=== PATIENT | male | born 1990 | race Caucasian/White ===

== ENCOUNTER 2022-03-07 17:06 | Emergency (ER) | payer OTHER, SELFPAY ==
[2022-03-07 17:30] VITALS: BP 138/90; PULSE 78; RESP 16; TEMP 36.7; O2SAT 100
--- NOTE | 2022-03-07 17:43 | ED.SKABFB ---
HPI - Skin/Abscess/Foreign Bdy General Chief complaint: Skin/Abscess/Foreign Body Stated complaint: abscess Time Seen by Provider: 03/07/22 17:36 History of Present Illness HPI narrative: Patient is a 32-year-old male with with a history of recurrent perirectal abscesses here for evaluation of pain and swelling around his rectum. Patient states he noted the symptoms 2 days ago and have been increasing in severity ever since. Notes similar presentation with his previous perirectal abscesses. He states these abscesses have been attributed to a complication of traveler's diarrhea, and he has required incision and drainage for management in the past. He has an appointment with his surgeon next week for drainage, but states the pain was too severe to wait. Unreleived after Ibuprofen. Denies fevers, chills, abdominal pain, further systemic symptoms. Related Data Allergies Allergy/AdvReac Type Severity Reaction Status Date / Time No Known Allergies Allergy Mild Verified 03/07/22 11:07 Review of Systems Review of Systems: Gen.: Denies fevers or chills Eyes: Denies eye pain or visual change ENT: Denies congestion Respiratory: Denies shortness of breath or cough CV: Denies chest pain or palpitations GI: Denies abdominal pain nausea, emesis or diarrhea denies burning, urgency, frequency or hematuria Musculoskeletal: Denies back pain or muscle pain Neuro: Denies numbness, tingling, weakness or focal weakness Skin: Reports lesion as per HPI Except as documented, all other systems reviewed and negative PMFSH Past Medical History Medical History No pertinent past medical history Surgical History Surgical History History of incision and drainage rectal abscess Social History Social History Smoking status: Never smoker Alcohol intake: current Drinks per week: 2 Substance use: never Substance use type: does not use Additional living arrangements comments: 1 roommate 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 Head normocephalic and atraumatic. EYES: PERRLA/EOMI, conjunctivae clear NOSE: No nasal drainage EARS: External ear normal in appearance THROAT: Oropharynx is clear. Mucous membranes are moist. NECK: Supple. No adenopathy, no masses. RESPIRATORY: Airway patent, respirations nonlabored. Clear to auscultation bilaterally, no rales, rhonchi, wheezing. CARDIOVASCULAR: Regular rate and rhythm without murmurs, rubs, or gallops. ABDOMINAL: Normoactive bowel sounds. Soft, nontender, nondistended. No rebound tenderness or guarding. MUSCULOSKELETAL: Extremities are warm and well-perfused. Moves all extremities well. No edema. NEURO: Normal speech. No focal neurologic deficits. SKIN: Patient has a 3 mm pinpoint area of fluctuance at the 7 o'clock position, about 1 cm away from the anal verge, with underlying fluctuance and surrounding erythema. No active drainage. PSYCHIATRIC: Normal affect/mood. Course Vital Signs Vital signs: Vital Signs Temperature 98.0 F 03/07/22 17:30 Pulse Rate 78 03/07/22 17:30 Respiratory Rate 16 03/07/22 17:30 Blood Pressure 138/90 03/07/22 17:30 Pulse Oximetry 100 03/07/22 17:30 Oxygen Delivery Room Air 03/07/22 17:30 Temperature 98.0 F 03/07/22 17:30 Pulse Rate 78 03/07/22 17:30 Respiratory Rate 16 03/07/22 17:30 Blood Pressure 138/90 03/07/22 17:30 Pulse Oximetry 100 03/07/22 17:30 Oxygen Delivery Room Air 03/07/22 17:30 MDM - Skin/Abscess/Foreign Bdy MDM Narrative Medical decision making narrative: 32-year-old male here for evaluation of a suspected perirectal abscess. Patient has normal vital signs and is nont
[2022-03-07] MEDS: HYDROcodone/acetaminophen (*CRX) 5-325 MG TABLET 1 TAB PO (18:34)
[2022-03-07] MEDS: AMOXICILLIN/CLAVULANATE K 875-125 MG TAB 1 TABLET PO (18:35)
== END 2022-03-07 18:40 | disposition home or self-care (01) ==
PROVIDERS: Emergency Provider Emergency Medicine; PCP Family Medicine
DX: K61.1 Rectal abscess (principal)
CPT/HCPCS: 99283; A9270

== ENCOUNTER 2022-03-25 01:04 | Day surgery (SDC) | payer OTHER, SELFPAY ==
[2022-03-23 08:23] VITALS: BMI 23.1
[2022-03-25 12:20] VITALS: BP 133/86; PULSE 63; RESP 16; TEMP 36.7; O2SAT 100
--- NOTE | 2022-03-25 12:25 | WPDGICN ---
GI Consult Note Consult date/time: 03/25/22 12:25 Reason for consult: Perirectal abscess. HPI: Miles Manriquez is a 32 year old male Referred for colonoscopy. Patient has a history of perirectal abscess drained by surgery 2 weeks ago. He no longer is on antibiotics. He states bowel habits are normal but occasionally loose. Denies any blood in his stools. He is referred now for colonoscopy to exclude any indication of inflammatory bowel disease. His family history is noncontributory there is no known history of inflammatory bowel disease. Review of Systems Review of Systems: Review of systems noncontributory. 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 Gender identity (if verbalized by the patient): Male Spiritual care concerns: No Meds Home Medications and Allergies Home Medications Medication Instructions Recorded Confirmed Type sodium sul 1.479 gram-potas ch See Rx Instructions PO PER PKG DIR 03/22/22 03/23/22 Rx 0.188 gram-magnes sul 0.225 gram #24 tabs tablet (Sutab) methylphenidate HCl 10 mg tablet 1 tablet PO DAILY 03/25/22 03/25/22 History Allergies Allergy/AdvReac Type Severity Reaction Status Date / Time No Known Allergies Allergy Mild Verified 03/25/22 12:17 Vital Signs Vital Signs - 24 hr 03/25/22 12:20 Temperature 98.1 F Pulse Rate 63 Respiratory Rate 16 Blood Pressure 133/86 Pulse Oximetry 100 Oxygen Delivery Room Air Exam Narrative: Physical exam reveals patient be alert. Vital signs stable. HEENT exam is unremarkable. Patient is anicteric. Lungs are clear to auscultation and percussion. Heart is without murmur or extra sounds. Abdominal exam bowel sounds present soft nontender with no organomegaly. Digital external rectal exam unremarkable perirectal abscess appears healing adequately at present.
--- NOTE | 2022-03-25 12:30 | P.PNAN_ITS ---
Anes - Initial Pre Proc Eval Procedure: Operation Date: 03/25/22 13:00 Proposed Procedures p Colonoscopy - Grant Perry MD Date/Time: 03/25/22 12:30 Surgeon: Grant Perry MD Pre Op Diagnosis: Rectal Mass Patient Data Age: 32 Gender: M Height: 1.8 m Weight: 76.3 kg Last Vital Signs Temp 36.7 C 03/25/22 12:20 Pulse 63 03/25/22 12:20 Resp 16 03/25/22 12:20 BP 133/86 03/25/22 12:20 Pulse Ox 100 03/25/22 12:20 O2 Del Method Room Air 03/25/22 12:20 Allergies Allergy/AdvReac Type Severity Reaction Status Date / Time No Known Allergies Allergy Mild Verified 03/25/22 12:17 Home Medications Medication Instructions Recorded Confirmed Type sodium sul 1.479 gram-potas ch See Rx Instructions PO PER PKG DIR 03/22/22 03/23/22 Rx 0.188 gram-magnes sul 0.225 gram #24 tabs tablet (Sutab) methylphenidate HCl 10 mg tablet 1 tablet PO DAILY 03/25/22 03/25/22 History Patient hx anesthesia problems: none Family hx anesthesia problems: none Results Review: All pre-operative results and documents have been reviewed as part of the pre- operative evaluation. 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 Informed Consent: The patient's anesthetic plan and its attendant risks and benefits were discussed with the patient/family/POA. Questions were solicited and answers provided to the satisfaction of the patient/family/POA.
[2022-03-25] MEDS: LACTATED RINGERS 1,000 ML 150 ML IV CONT (12:32)
[2022-03-25 13:28] VITALS: BP 113/65; PULSE 77; RESP 15; O2SAT 100
[2022-03-25 13:38] VITALS: BP 122/85; PULSE 64; RESP 20; O2SAT 100
[2022-03-25 13:48] VITALS: BP 128/87; PULSE 66; RESP 18; O2SAT 100
== END 2022-03-25 13:57 | disposition home or self-care (01) ==
PROVIDERS: PCP Family Medicine; Visit Provider Internal Medicine Gastroenterology
PROC: 0DJD8ZZ Inspection of Lower Intestinal Tract, Via Natural or Artificial Opening Endoscopic (ICD-10-PCS; CPT 45378; principal; 2022-03-25 13:00)
DX: K61.1 Rectal abscess (principal); F90.0 Attention-deficit hyperactivity disorder, predominantly inattentive type
CPT/HCPCS: 45378; J2704; J7120

== ENCOUNTER 2022-06-29 06:02 | Day surgery (SDC) | payer OTHER, SELFPAY ==
[2022-06-07 08:28] VITALS: BMI 25.9
[2022-06-14 15:05] VITALS: BMI 24.6
[2022-06-29 06:15] VITALS: BP 124/96; PULSE 55; RESP 16; TEMP 37.3; O2SAT 99
[2022-06-29] MEDS: ACETAMINOPHEN 500 MG TABLET 1000 MG PO (06:20)
[2022-06-29 06:22] VITALS: BMI 24.1
--- NOTE | 2022-06-29 07:14 | WPDHPUPDATE1 ---
History and Physical Update Update Date/Time: 06/29/22 07:14 History and Physical has been reviewed, including an updated exam of the patient. There are NO changes in the patient's condition. Risks, benefits, and alternatives have been discussed and questions answered. Patient agrees to proceed with procedure.
--- NOTE | 2022-06-29 07:15 | PM.IMHP ---
H&P: HPI History of Present Illness Date/Time: 06/29/22 07:15 Chief Complaint: anal fistula Narrative: 32 yo man presents for anal fistulotomy. Review of Systems Review of Systems: All systems reviewed & are unremarkable except as noted in HPI and below Constitutional: Constitutional: Denies chills, Denies fever(s), Denies headache(s) and Denies weight loss Eyes: Eyes: Denies change in vision ENT: Denies dizziness, Denies headache(s), Denies neck mass and Denies throat swelling Cardiovascular: Cardiovascular: Denies chest pain, Denies lightheadedness and Denies dyspnea Respiratory: Respiratory: Denies cough, Denies dyspnea and Denies wheezing Gastrointestinal: Gastrointestinal: Denies abdominal pain, Denies change in bowel habits, Denies nausea and Denies vomiting Genitourinary: Genitourinary: Denies hematuria and Denies dysuria Musculoskeletal: Musculoskeletal: Reports as per HPI Integumentary/Breasts: Skin/Breast: Reports as per HPI Neurologic: Denies dizziness and Denies headache(s) Allergic/Immunologic: Allergic/Immunologic: Denies throat swelling and Denies wheezing [facility] Past Medical History Medical History Attention deficit disorder predominant inattentive type Surgical History Surgical History History of incision and drainage rectal abscess Social History Social History Smoking status: Never smoker Second hand tobacco smoke exposure: No Alcohol intake: current Drinks per week: 2 Substance use: never Substance use type: does not use Living arrangements: with family Additional living arrangements comments: 1 roommate 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 Gender identity (if verbalized by the patient): Male Spiritual care concerns: No Meds Home Medications and Allergies Home Medications Medication Instructions Recorded Confirmed Type methylphenidate HCl 10 mg tablet 1 tablet PO DAILY 03/25/22 06/29/22 History (Ritalin) Allergies Allergy/AdvReac Type Severity Reaction Status Date / Time No Known Allergies Allergy Mild Verified 06/29/22 06:25 Vital Signs Vital Signs - 24 hr 06/29/22 06:15 Temperature 37.3 C Pulse Rate 55 L Respiratory Rate 16 Blood Pressure 124/96 H Pulse Oximetry 99 Oxygen Delivery Room Air Exam Const: General: no acute distress and alert Orientation/consciousness: patient oriented x3 HENMT: Head: normocephalic and atraumatic Ears: hearing grossly normal bilaterally General nose exam: Normal nares present Mouth: Yes Normal oral and palatal mucosa present Eyes: Periorbital: periorbital findings normal Sclera: sclerae normal EOM: EOMs intact bilaterally Neck: Neck: normal visual inspection, no lymphadenopathy and trachea midline Chest: Chest palpation & inspection: normal inspection of the chest Resp: Effort & Inspection: normal respiratory effort Auscultation: clear to auscultation bilaterally Cardio: Jugular venous distension: no JVD Rate: regular rate Rhythm: regular rhythm Heart sounds: S1 normal heart sound present and S2 normal heart sound present Peripheral pulses: Peripheral pulses 2+ throughout GI: Inspection: normal to inspection GI Palp: Yes Soft to palpation, No Tenderness to palpation present (GI), No Guarding due to palpation present (GI) and No Rebound tenderness present Percussion: Yes normal to percussion Auscultation: normal bowel sounds : General: Yes no CVA tenderness Back/Spine/Pelvis: Back: no CVA tenderness Neuro: General: patient oriented x3, no focal motor deficits and CN's II-XI intact bilaterally Cognition (Neuro): normal cognition Speech: normal speech Motor exam (neuro): 5/5 motor strength present throughout Extrem: General: capillary refill normal and no clubbing, cyanosis or
--- NOTE | 2022-06-29 07:20 | WPDANESEPPF ---
Anes - Initial Pre Proc Eval Procedure: Operation Date: 06/29/22 07:30 Proposed Procedures p Rectal Exam Under Anesthesia with Anal Fistulotomy - Lenin Tate DO Date/Time: 06/29/22 07:20 Surgeon: Lenin Tate DO Pre Op Diagnosis: Anal Fistula Patient Data Age: 32 Gender: M Height: 1.8 m Weight: 78.5 kg Last Vital Signs Temp 37.3 C 06/29/22 06:15 Pulse 55 L 06/29/22 06:15 Resp 16 06/29/22 06:15 BP 124/96 H 06/29/22 06:15 Pulse Ox 99 06/29/22 06:15 O2 Del Method Room Air 06/29/22 06:15 Allergies Allergy/AdvReac Type Severity Reaction Status Date / Time No Known Allergies Allergy Mild Verified 06/29/22 06:25 Home Medications Medication Instructions Recorded Confirmed Type methylphenidate HCl 10 mg tablet 1 tablet PO DAILY 03/25/22 06/29/22 History (Ritalin) Patient hx anesthesia problems: none Family hx anesthesia problems: none Results Review: All pre-operative results and documents have been reviewed as part of the pre-operative evaluation. 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 Informed Consent: The patient's anesthetic plan and its attendant risks and benefits were discussed with the patient/family/POA. Questions were solicited and answers provided to the satisfaction of the patient/family/POA.
[2022-06-29] MEDS: LACTATED RINGERS 1,000 ML 30 ML IV CONT ×2 (07:32→08:02)
[2022-06-29] MEDS: BUPIVACAINE/EPINEPHRINE 0.5% 30 ML VIAL 10 ML INFILTRATE (07:52)
--- NOTE | 2022-06-29 08:00 | W.PM.PROC2 ---
Procedure Note - Detailed Date of Procedure 06/29/22 Pre-op Diagnosis Anal Fistula Post-op Diagnosis Same (Left lateral intersphincteric anal fistula) Procedure Performed rectal exam under anesthesia with intersphincteric anal fistulotomy Surgeon Lenin Tate, DO Anesthesia General and Local ( 0.5% bupivacaine with epinephrine) Indications this is a 32-year-old man who presented with an anal fistula. He had a history of perirectal abscess that was drained several months ago. He then had a recurrence and had to have this drained again. He does have some intermittent drainage from the previous infection site. He was found to have a small pinpoint opening on the perianal skin consistent with an anal fistula. Discussions were made with the patient about treatment options and decision was made to proceed with rectal exam under anesthesia with anal fistulotomy. Findings Rectal exam under anesthesia was performed. The anorectal canal was carefully visualized and no significant abnormalities were noted. On the left lateral perianal skin there was a small 2 mm opening that was probed with a lacrimal probe and a fistula tract was identified entering to the left lateral anal canal. This appeared to only be going through a few sphincter muscle fibers. An intersphincteric anal fistulotomy was performed. No specimens were obtained for pathology. Description of Procedure Procedure as well as risks, benefits, and alternatives were discussed with the patient. Written consent was obtained and placed in chart prior to procedure. Patient was brought back to surgical suite. He was placed supine on operating table. Time-out was done to confirm patient and procedure. He was then intubated by the anesthesia department. He was then placed in dorsal lithotomy position in stirrups. His perirectal area was prepped and draped in sterile fashion using Betadine prep. Digital rectal exam was initially performed. A Hill-Fuentes anoscope was then inserted and the anorectal canal was carefully visualized. A lacrimal probe was then inserted to the perianal skin opening at the left lateral region where the external fistula site was noted. The probe was carefully advanced towards the anal canal and the fistula tract was identified. 0.5% bupivacaine with epinephrine was then infiltrated locally over the tract. An incision was then made over the fistula tract using a 15 blade scalpel. Electrocautery was then used to dissect through the subcutaneous tissue all the way through to open up the fistula completely. The chronic granulation was then debrided using electrocautery. The wound bed was then inspected and no other abnormalities were noted. The area was irrigated with sterile saline. Xeroform gauze was then applied followed by fluff gauze, ABD pad, and mesh underwear. The patient was then awakened from anesthesia, extubated, and transferred to recovery. Estimated Blood Loss 5 Complications No immediate complications Condition Stable Disposition Same day [facility] Billing Surgery - Charge Forward: Surgery Billing
[2022-06-29 08:02] VITALS: BP 102/62; PULSE 72; RESP 10; TEMP 36.4; O2SAT 100
[2022-06-29 08:15] VITALS: BP 112/65; PULSE 80; RESP 14; O2SAT 100
--- NOTE | 2022-06-29 08:27 | SUR.PHASEI ---
0838; DR KIRKPATRICK IN PACU SPEAKING TO PT. PT AWAKE AND ALERT. DENIES PAIN OR NAUSEA. TALKATIVE
[2022-06-29 08:30] VITALS: BP 114/80; PULSE 70; RESP 17; O2SAT 100
--- NOTE | 2022-06-29 08:37 | SUR.PHASEI ---
PT AWAKE AND ALERT. TALKATIVE. DENIES PAIN OR NAUSEA.
[2022-06-29 08:38] VITALS: BP 119/77; PULSE 67; RESP 16; O2SAT 100
--- NOTE | 2022-06-29 08:58 | WPDANESPN ---
Anes - Prog Note Post-Op Date/Time: 06/29/22 08:58 Cardiovascular status: normal Respiratory status: normal Airway patency: baseline Mental status: baseline Post-Op hydration status: normal Vital Signs: Last Vital Signs Temp 36.4 C 06/29/22 08:02 Pulse 67 06/29/22 08:38 Resp 16 06/29/22 08:38 BP 119/77 06/29/22 08:38 Pulse Ox 100 06/29/22 08:38 O2 Del Method Room Air 06/29/22 08:38 O2 Flow Rate 6 06/29/22 08:15 Pain Score (VAS): 0 I/O: Intake & Output 06/28/22 06/29/22 06/29/22 23:59 07:59 15:59 Intake Total 200 Balance 200 Patient Feedback: Patient satisfied with anesthetic care.
[2022-06-29 09:08] VITALS: BP 113/73; PULSE 60; RESP 14
--- NOTE | 2022-06-29 09:10 | SUR.PHASEII ---
PT AWAKE AND ALERT. DENIES PAIN OR NAUSEA. EATING AND DRINKING. MEETS DISCHARGE CRITIERA.
== END 2022-06-29 09:28 | disposition home or self-care (01) ==
PROVIDERS: PCP Family Medicine; Visit Provider Surgery
PROC: (CPT 46275; principal; 2022-06-29 07:30)
DX: K60.3 Anal fistula (principal)
CPT/HCPCS: 46275

== ENCOUNTER 2025-08-03 22:54 | Emergency (ER) | payer OTHER, SELFPAY ==
[2025-08-03 23:19] VITALS: BP 148/93; PULSE 82; RESP 20; TEMP 37.3; O2SAT 99
[2025-08-04] VITALS (25 sets, daily range): BP systolic 113–126; BP diastolic 70–80; O2SAT 96–100
[2025-08-04 02:13] LABS: Hematocrit 42.3 % (42.0-52.0); Hemoglobin 14.1 g/dL (14.0-18.0); Immature Granulocyte Percent A 0.6 % (0-0.5); Lymphocytes Absolute Auto 0.33 K/mm3 (0.9-3.2); Mean Corpuscular HGB Conc 33.3 g/dl (32-36); Mean Corpuscular Hemoglobin 29.6 pg (26-34); Mean Corpuscular Volume 88.9 fl (80-100); Nucleated Red Blood Cells Absolute Auto 0.000 K/mm3 (0.0-0.012); Nucleated Red Blood Cells Perc 0.0 % (0.0-0.2); Platelet Count Result 161 k/mm3 (150-375); Red Blood Count 4.76 M/mm3 (4.6-6.20); White Blood Count 3.2 K/mm3 (4.5-10.0)
--- OUTSIDE RECORDS SUMMARY | 2025-08-04 02:18 | XMS_ITS | Clinical Summary ---
Author Organization [facility] Address [address] [place] [address] Phone Care Team Providers Care Banana Room Cutter Name Role Phone Keily Esparza MD Primary Care Provider [phone] Allergies No known active allergies Medications No known medications Active Problems No known active problems Social History Tobacco Use Types Packs/Day Years Used Date Smoking Tobacco: Never Smokeless Tobacco: Never Feeling Safe Answer Date Recorded Are you in a relationship wi th someone who hurts you emotionally and/or physically? No 05/29/2023 Sex and Gender Information Value Date Recorded Sex Assigned at Not on file Legal Sex Male 5:05 PM CDT Gender Identity Not on file Sexual Orientation Not on file Last Filed Vital Signs Vital Sign Reading Time Taken Comments Blood Pressure 122/66 06/07/2023 4:24 PM CDT Pulse 70 05/29/2023 5:10 PM CDT Temperature 36.7 C (98 F) 05/29/2023 5:10 PM CDT Respiratory Rate 18 05/29/2023 5:10 PM CDT Oxygen Saturation 100% 05/29/2023 5:10 PM CDT Inhaled Oxygen Concentration - - Weight 79.4 kg (175 lb) 06/07/2023 4:24 PM CDT Height 180.3 cm (5' 11) 06/07/2023 4:24 PM CDT Body Mass Index 24.41 06/07/2023 4:24 PM CDT Plan of Treatment Health Maintenance Due Date Last Done Comments DTAP/TDAP/TD VACCINES (1 - Tdap) 01/02/2011 HEPATITIS B VACCINES (1 of 3 - 19+ 3-dose series) 11/2010 HPV VACCINES (1 - 3-dose SCDM series) 01/02/2019 INFLUENZA VACCINE (#1) 2025 Insurance [facility] CHOICE [id number] [place] [address] Care Teams Banana Room Cutter Relationship Specialty Start Date End Date Keily Esparza MD [address] [place] [address] [address] PCP - General Family Practice 05/29/23
[2025-08-04 02:20] LABS: Add Urine Microscopic? YES; Appearance Urine Clear (Clear); Glucose Urine UA Negative (Negative); Leukocyte Esterase Ur Negative LEU/UL (Negative); Nitrate Urine Negative (Negative); Non Pathogenic Casts 0-2; Specific Grav Ur 1.016 (1.001-1.035)
[2025-08-04 02:26] LABS: Alanine Aminotransferase 22 U/L (6-50); Albumin Level 4.2 g/dL (3.5-5.1); Alkaline Phosphatase 46 U/L (38-126); Anion Gap 8 mmol/L (4-12); Aspartate Amino Transferase 27 U/L (17-59); Bilirubin,Total 0.8 mg/dL (0.2-1.3); Blood Urea Nitrogen 16 mg/dL (9-20); Calcium 8.4 mg/dL (8.4-10.2); Carbon Dioxide 24 mmol/L (22-30); Chloride 103 mmol/L (98-107); Estimated CRCL calculation 88 ml/min; Estimated Glomerular Filt Rate > 60; Glucose 124 mg/dL (65-110); Lipase 63 U/L (23-300); Potassium 4.8 mmol/L (3.4-5.0); Sodium 135 mmol/L (137-145); Total Protein 7.1 g/dL (6.3-8.2)
--- NOTE | 2025-08-04 02:39 | ED.ABDPAIN ---
HPI - Abdominal Pain General Chief Complaint: Abdominal Pain Stated Complaint: FEVER,ABD PAIN,N/D Time Seen by Provider: 08/04/25 01:48 History of Present Illness HPI narrative: 35-year-old male presenting to the emergency department today with elevated temperature, abdominal discomfort cramping pain and diarrhea. States had an episode nausea without vomiting. Has been having watery diarrhea with loose stool for last 2 days. Endorses no sick contacts but does note that his dog also had some diarrhea starting last week and he has been cleaning it up. Denies any other exposures or sick contacts. No medication changes or recent antibiotics. No abdominal pain presently and comes in waves. Has been taking Tylenol and ibuprofen for his fever and has been working for him. No history of abdominal surgeries. Was otherwise in his normal state of health. No chest pain, difficulty breathing, present nausea vomiting. Headache or vision changes. No chills, diaphoresis. Related Data Allergies Allergy/AdvReac Type Severity Reaction Status Date / Time No Known Allergies Allergy Mild Verified 08/03/25 22:55 Review of Systems Review of Systems: As reviewed [facility] Past Medical History Medical History JG (obstructive sleep apnea) Attention deficit disorder predominant inattentive type Surgical History Surgical History Anal fistula REUA and Anal Fistulotomy on 06/29/22 History of incision and drainage rectal abscess Social History Social History Smoking status: Never smoker Second hand tobacco smoke exposure: No Alcohol intake: current Drinks per week: 5 Substance use: never Substance use type: does not use Do You Feel Safe in your Home?: Yes Living arrangements: with family Additional living arrangements comments: 1 roommate Occupation/Education: occupation Additional occupation/education comments: [employer] Gender identity (if verbalized by the patient): Male Spiritual care concerns: No Exam Narrative: GENERAL: [Well-appearing, well-nourished, and in no acute distress.] HEAD: [Normocephalic, atraumatic.] EYES: [PERRLA and EOMI.] ENT: Nares clear, no rhinorrhea or epistaxis. Mucous membranes moist. NECK: Supple. CHEST: [Clear to auscultation. No respiratory distress.] HEART: [Regular rate and rhythm]. No murmur heard. [Normal peripheral pulses.] ABDOMEN: [Soft, nondistended], [nontender], [No rigidity or guarding] EXTREMITIES: Normal range of motion. [No edema.] SKIN: Warm, dry, no rash. NEURO: [No focal deficits]. Alert and oriented [x3.] PSYCH: [Normal mood and affect.] Course Vital Signs Vital signs: Vital Signs Temperature 37.3 C 08/03/25 23:19 Pulse Rate 82 08/03/25 23:19 Respiratory Rate 20 08/03/25 23:19 Blood Pressure 148/93 H 08/03/25 23:19 Pulse Oximetry 99 08/03/25 23:19 Temperature 37.3 C 08/03/25 23:19 Pulse Rate 82 08/03/25 23:19 Respiratory Rate 20 08/03/25 23:19 Blood Pressure 121/70 08/04/25 04:31 Pulse Oximetry 100 08/04/25 04:31 MDM - Abdominal Pain MDM Narrative Medical decision making narrative: 35-year-old male presenting to the emergency department today with elevated temperature, abdominal discomfort cramping pain and diarrhea. States had an episode nausea without vomiting. Has been having watery diarrhea with loose stool for last 2 days. Endorses no sick contacts but does note that his dog also had some diarrhea starting last week and he has been cleaning it up. Denies any other exposures or sick contacts. No medication changes or recent antibiotics. No abdominal pain presently and comes in waves. Has been taking Tylenol and ibuprofen for his fever and has been working for him. No history of abdominal surgeries. Was otherwise in his normal state of health. No chest pain, difficulty breathing, present nausea vomiting. Headache or vision changes. No chills, diaphoresis. Patient has a soft nontender nondistended abdomen. Normal vital signs with any fever here. No tachycardia, tachypnea or hypoxemia. Unremarkable blood pressure. Given patient's unremarkable findings symptoms consistent more likely viral illness and diarrheal illness versus gastritis versus gastroenteritis versus less likely intra-abdominal infection such as appendicitis or cholecystitis. Will obtain basic laboratory studies and he was given fluids Zofran and Bentyl and re-evaluated. No indications for advanced CT imaging at this time. Patient re-evaluated and felt better after the fluids and medications. Still had an episode diarrhea but was feeling improved. Laboratory studies showed no leukocytosis or anemia. Normal platelet count. Electrolytes are unremarkable. Normal renal and hepatic function. Normal glucose. Normal lipase. Urinalysis and COVID testing negative. Patient is improved with a soft abdomen and can safely go home with outpatient follow-up and new prescriptions for Bentyl Zofran and loperamide as needed and given return precautions. Patient is safe for discharge at this time. Medical Records Attestation: I reviewed the patient's medical records. Lab Data Attestation: I reviewed the patient's lab results. 08/04/25 02:00 08/04/25 02:00 Labs: Lab Results 08/04/25 Range/Units 02:00 WBC 3.2 L (4.5-10.0) K/mm3 RBC 4.76 (4.6-6.20) M/mm3 Hgb 14.1 (14.0-18.0) g/dL Hct 42.3 (42.0-52.0) % MCV 88.9 (80-100) fl MCH 29.6 (26-34) pg MCHC 33.3 (32-36) g/dl RDW 12.9 (11.5-14.5) % Plt Count 161 (150-375) k/mm3 MPV 9.3 (7.4-10.4) fl Immature Gran % (Auto) 0.6 H (0-0.5) % Neut % (Auto) 80.4 H (45.5-73.1) % Lymph % (Auto) 10.3 L (18.3-44.2) % Ness % (Auto) 8.1 (2.6-8.5) % Eos % (Auto) 0.0 (0-4.4) % Baso % (Auto) 0.6 (0.2-1.2) % Lymph # (Auto) 0.33 L (0.9-3.2) K/mm3 Ness # (Auto) 0.3 (0.1-0.6) K/mm3 Eos # (Auto) 0.0 (0-0.3) K/mm3 Baso # (Auto) 0.0 (0.0-0.1) K/mm3 Abs Immat Gran (auto) 0.02 (0.00-0.031) K/mm3 Absolute Neuts (auto) 2.6 (1.3-6.7) K/mm3 Absolute Nucleated RBC 0.000 (0.0-0.012) K/mm3 Nucleated RBC % 0.0 (0.0-0.2) % Sodium 135 L (137-145) mmol/L Potassium 4.8 (3.4-5.0) mmol/L Chloride 103 (98-107) mmol/L Carbon Dioxide 24 (22-30) mmol/L Anion Gap 8 (4-12) mmol/L BUN 16 (9-20) mg/dL Creatinine 1.10 (0.7-1.3) mg/dL Estim Creat Clear Calc 88 ml/min Estimated GFR > 60 (59 - ) Glucose 124 H (65-110) mg/dL Calcium 8.4 (8.4-10.2) mg/dL Total Bilirubin 0.8 (0.2-1.3) mg/dL AST 27 (17-59) U/L ALT 22 (6-50) U/L Alkaline Phosphatase 46 (38-126) U/L Total Protein 7.1 (6.3-8.2) g/dL Albumin 4.2 (3.5-5.1) g/dL Lipase 63 (23-300) U/L Urine Color Yellow (Yellow) Urine Appearance Clear (Clear) Urine pH 6.0 (5.0-9.0) Ur Specific [place] 1.016 (1.001-1.035) Urine Protein Trace (Negative) mg/dL Urine Glucose (UA) Negative (Negative) mg/dL Urine Ketones Negative (Negative) mg/dL Ur Blood (Man) Negative (Negative) Urine Nitrate Negative (Negative) Urine Bilirubin Negative (Negative) Urine Urobilinogen 0.2 (<2.0) mg/dL Leukocyte Esterase Rfl Negative (Negative) JEAN/UL Urine RBC 0-2 (0-2) /hpf Urine WBC 0-5 (0-3) /hpf Ur Squamous Epith Cells None seen (Few) /hpf Urine Bacteria None seen /hpf Urine Casts 0-2 Influenza A (RT-PCR) Negative (Negative) Influenza B (RT-PCR) Negative (Negative) RSV (RT-PCR) Negative (Negative) SARS-CoV-2 RNA (RT-PCR) Negative (Negative) Discharge Plan Discharge Clinical Impression: Acute diarrhea, Gastroenteritis Patient Disposition: Home Condition: Stable Instructions: Antibiotic Form, Gastroenteritis (DC), Acute Diarrhea (ED) Additional Instructions: Symptoms consistent with gastroenteritis or viral diarrhea. Laboratory studies are reassuring. We will send you home with some medications for symptom control. Follow-up with your primary care provider or return with any worsening or emergent concerns. Patient Language: [place] Prescriptions: New dicyclomine 20 mg tablet 20 mg PO TID PRN (Reason: abdominal pain) Qty: 20 0RF ondansetron 4 mg tablet,disintegrating 4 mg PO Q8H PRN (Reason: nausea and vomiting) Qty: 20 0RF loperamide [Anti-Diarrheal (loperamide)] 2 mg capsule 2 mg PO Q6H PRN (Reason: loose stool) Qty: 14 0RF No Action methylphenidate HCl [Ritalin] 10 mg tablet 10 mg PO DAILY Qty: 30 0RF Rx Instructions: JANUARY methylphenidate HCl [Ritalin] 10 mg tablet 10 mg PO DAILY Qty: 30 0RF Rx Instructions: MARCH methylphenidate HCl [Ritalin] 10 mg tablet 10 mg PO DAILY Qty: 30 0RF Rx Instructions: APRIL Follow-up/Referrals: Keily Esparza MD [Primary Care Provider, Family Practice] Time of Disposition: 04:09
[2025-08-04] MEDS: DICYCLOMINE HCL 10 MG CAPSULE 20 MG PO (02:41)
[2025-08-04] MEDS: LACTATED RINGERS 1,000 ML 999 ML IV CONT (02:41)
[2025-08-04] MEDS: ONDANSETRON INJ 4 MG/2 ML VIAL IV PUSH (02:41)
[2025-08-04 02:50] LABS: Influenza A QL RT-PCR Negative (Negative); Influenza B QL RT-PCR Negative (Negative); RSV RNA, RT-PCR Negative (Negative); SARS-CoV-2 RNA PCR Negative (Negative)
== END 2025-08-04 04:50 | disposition home or self-care (01) ==
PROVIDERS: Emergency Provider Student in an Organized Health Care Education/Training Program; PCP Family Medicine
DX: K52.9 Noninfective gastroenteritis and colitis, unspecified (principal); Z20.822 Contact with and (suspected) exposure to COVID-19; G47.33 Obstructive sleep apnea (adult) (pediatric); F90.0 Attention-deficit hyperactivity disorder, predominantly inattentive type; Z79.899 Other long term (current) drug therapy
CPT/HCPCS: 36415; 80053; 81001; 83690; 85025; 87637; 96361; 96374; 99284; A9270; J2405; J7120